=== PATIENT | female | born 1970 | race Caucasian/White ===

== ENCOUNTER → 2022-03-10 12:34 | Outpatient (CLI) | payer BC, SELFPAY ==
[2022-03-10 14:19] LABS: NT Pro Brain Natriuretic Pep. 28.7 pg/mL (0-125)
== END ==
PROVIDERS: PCP Physician Assistant; Visit Provider Internal Medicine Cardiovascular Disease
DX: R00.2 Palpitations (principal); E78.5 Hyperlipidemia, unspecified; R94.31 Abnormal electrocardiogram [ECG] [EKG]; F17.200 Nicotine dependence, unspecified, uncomplicated; R06.83 Snoring; R40.0 Somnolence; R60.0 Localized edema
CPT/HCPCS: 36415; 83880; 93270

== ENCOUNTER → 2022-03-20 07:12 | Outpatient (CLI) | payer BC, SELFPAY ==
--- NOTE | 2022-03-20 07:13 | CA_ITS ---
APPROVED REPORT EXAM: Comprehensive 2D, Doppler, and color-flow Echocardiogram Manager Social Work: Kristi Gil, RCS, RVS Ht: 5 ft 9 in Wt: 221lbs BSA: 2.16 BP: 134/70 mmHg Indications: Smoker, Family Hx-HD, Palpitations, CP, HLD, Edema 2D Dimensions IVSd 0.88 cm F: 0.6-1.0 LVEF (Visual) 48.70 % PWd 0.86 cm F: 0.6 - 1.0 LA Volume 75.80 mL LVDd 5.62 cm F: 3.9 - 5.3 LA Volume Index 35.25 mL/m2 (M/F) 16-34 LVDs 4.22 cm F: 2.2 - 3.5 Aortic Root 2.87 cm F: 2.7 - 3.3 Left Atrium 3.87 cm F: 2.7 - 3.8 LVOT 2.06 cm (M/F) 1.5-2.5 M-Mode Dimensions RVDd 2.32 cm (0.9-2.6) LA Diam 3.67 cm (1.9-4.0) LVDd 5.52 cm (3.5-5.7) Ao Diam 3.03 cm (2.0-3.7) LVDs 4.12 cm (3.5-5.7) IVSd 1.03 cm (0.6-1.1) PWd 0.84 cm (0.6-1.1) EF (Teich) 50.30% EPSs 1.21 cm FS 25.90% EDV (Teich) 151.20 mL TAPSE 2.02 (<1.7) ESV (Teich) 75.10 mL LV Diastology E Decel Time 183.00 (160-240 msec) E/A Ratio 1.36 MED E' 9.50 (< 7 cm/sec) MED A' 10.80 cm/s E'/MED E' Ratio 10.04 (>14) LAT E' 8.10 (<10 cm/sec) LAT A' 6.20 cm/s E/LAT E' Ratio 11.78 (>14) Aortic Valve LVOT Max 93.00 (70-110 cm/s) LVOT VTI 20.12 cm AoV Peak Shimon. 122.00 (50-130 cm/s) AO Peak GR. 6.00 mmHg AO Mean GR. 3.00 (<5 mmHg) AO VTI 25.95 (18-25 cm) JOHN (VTI) 2.58 (2.5-4.5 cm2) Mitral Valve MV A Velocity 70.00 (40-130 cm/s) E/A Ratio 1.36 MV Decel. Time 183.00 (160-240 ms) MV PHT 53.00 ms Pulmonary Valve PV Peak Velocity 54.00 (50-150 cm/s) Tricuspid Valve TR P. Velocity 219.00 cm/s RAP Estimate 10.00 mmHg RVSP 29.10 mmHg Left Ventricle Left atrium is normal size, left ventricle is normal size there is no concentric left ventricular hypertrophy, estimated ejection fraction 55% with no regional wall motion abnormality, diastolic parameters are within normal range. Right Ventricle Right atrium and right ventricle are normal size and contractility. Aortic Valve Aortic valve is minimally thickened and fibrosed there is no aortic stenosis or aortic insufficiency. Mitral Valve Mitral valve grossly normal, there is trace mitral regurgitation. Tricuspid Valve Tricuspid valve grossly normal, there is trace tricuspid regurgitation, tricuspid regurgitation jet velocity is inadequate for calculation of the right ventricular systolic pressure. Pulmonic Valve Pulmonic valve is poorly visualized. Great Vessels Aortic root is normal size. Inferior vena cava is normal 7 normal inspiratory collapse. Pericardium No significant pericardial effusion noted. Conclusion 1. Normal left ventricular size preserved left ventricular systolic function, estimated ejection fraction 55% with no regional wall motion abnormality, diastolic parameters are within normal range. 2. Trace mitral and tricuspid regurgitation. 3. No significant pericardial effusion. 4. Inferior vena cava is normal size with normal inspiratory collapse. Electronically signed by : Merritt Maynard MD 03/20/2022 14:32:52
== END ==
PROVIDERS: PCP Physician Assistant; Visit Provider Internal Medicine Cardiovascular Disease
DX: R00.2 Palpitations (principal); E78.5 Hyperlipidemia, unspecified; R06.83 Snoring; R40.0 Somnolence; R94.31 Abnormal electrocardiogram [ECG] [EKG]; F17.200 Nicotine dependence, unspecified, uncomplicated
CPT/HCPCS: 93306

== ENCOUNTER → 2022-03-20 07:19 | Outpatient (CLI) | payer SELFPAY ==
--- NOTE | 2022-03-20 07:19 | CT_ITS ---
FINAL REPORT CLINICAL HISTORY: . family hx heart disease FINDINGS: CT CORONARY CALCIUM SCORE W/O TECHNIQUE: Thin-section axial images were obtained through the heart and coronary arteries per CT coronary calcium score protocol. This study was performed with techniques to keep radiation doses as low as reasonably achievable (ALARA). Individualized dose reduction techniques using automated exposure control or adjustment of mA and/or kV according to the patient's size were employed. FINDINGS: On the axial images, no calcification is seen. This gives a coronary artery calcium score of 0 based on the Agatston scale. This coronary artery calcium score places the patient within the 0 percentile based on age and gender. The heart size is normal. There is no pleural or pericardial effusion. Limited evaluation of the lungs reveal no suspicious nodule. IMPRESSION: Coronary artery calcium score of 0 based on the Agatston scale. Reviewed, Interpreted and Dictated by Clark Quiros III, MD Transcribed by Jenny Waite Authenticated and [facility]
== END ==
PROVIDERS: PCP Physician Assistant; Visit Provider Internal Medicine Cardiovascular Disease
DX: R00.2 Palpitations (principal); R94.31 Abnormal electrocardiogram [ECG] [EKG]; F17.200 Nicotine dependence, unspecified, uncomplicated
CPT/HCPCS: 75571

== ENCOUNTER → 2022-04-21 10:07 | Outpatient (CLI) | payer BC, SELFPAY | PROVIDERS: PCP Physician Assistant; Visit Provider Internal Medicine Cardiovascular Disease | DX: G47.30 Sleep apnea, unspecified (principal); R06.83 Snoring; R40.0 Somnolence | CPT/HCPCS: G0399 ==

== ENCOUNTER 2024-03-11 09:47 | Outpatient (CLI) | payer BC, SELFPAY ==
--- NOTE | 2024-03-11 09:47 | CA_ITS ---
APPROVED REPORT EXAM: Comprehensive 2D, Doppler, and color-flow Echocardiogram [employer]: Opla Lezama RT(R) Ht: 5 ft 9 in Wt: 227lbs BSA: 2.18 BP: 137/71 mmHg Indications: edema, smoker, palpitations 2D Dimensions LVEF (Amaya's) 62.00 % F: 54 - 74 LV Volume 90.00 mL F: 46 - 106 LV Volume Index 41.3 mL/m2 F: 29 - 61 LA Volume 28.70 mL LA Volume Index 13.17 mL/m2 (M/F) 16-34 EF AP4 62.80 % EF AP2 62.9 % EF BP 62.0 % GL Strain -19.0 % M-Mode Dimensions RVDd 2.16 cm (0.9-2.6) LA Diam 3.58 cm (1.9-4.0) LVDd 5.08 cm (3.5-5.7) LVDs 3.73 cm (3.5-5.7) IVSd 0.62 cm (0.6-1.1) PWd 0.99 cm (0.6-1.1) EF (Teich) 51.70% FS 26.60% EDV (Teich) 122.70 mL ESV (Teich) 59.30 mL LV Diastology E Decel Time 150 (160-240 msec) E/A Ratio 1.2 Mitral Valve MV E Max Shimon. 95.0 (40-130 cm/s) MV A Velocity 82.0 (40-130 cm/s) E/A Ratio 1.17 MV PHT 44.0 ms Left Ventricle The left ventricle is normal size. The left ventricular systolic function is normal. The left ventricular ejection fraction is within the normal range. There is normal left ventricular wall thickness. There is normal LV segmental wall motion. The left ventricular diastolic function is normal. LVEF is 55%. Right Ventricle The right ventricle is normal size. The right ventricular systolic function is normal. Atria The left atrium size is normal. The right atrium size is normal. There is no Doppler evidence of interatrial shunt. Aortic Valve The aortic valve is mildly thickened. There is no aortic valvular stenosis. Trace aortic regurgitation is present. Mitral Valve The mitral valve is normal in structure. No evidence of mitral valve stenosis. Mild mitral regurgitation. Tricuspid Valve The tricuspid valve leaflets are thin and pliable. Trace tricuspid regurgitation. There is insufficient TR jet to estimate RVSP. Pulmonic Valve The pulmonary valve is normal in structure. Trace pulmonic regurgitation. Great Vessels The aortic root is normal in size. The ascending aorta is normal in size. IVC is normal in size and collapses >50% with inspiration. Pericardium There is no pericardial effusion. Other Information Study Quality: Fair Conclusion Normal biventricular systolic function. Mild MR. Electronically signed by : Roxane Herrera MD 03/13/2024 10:57:21
== END 2024-03-11 23:59 | disposition home or self-care (01) ==
LOC: RT 09:47
PROVIDERS: PCP Nurse Practitioner Family; Visit Provider Physician Assistant
DX: R60.9 Edema, unspecified (principal); E78.5 Hyperlipidemia, unspecified; F17.200 Nicotine dependence, unspecified, uncomplicated
CPT/HCPCS: 93306

== ENCOUNTER 2024-03-13 10:06 | Outpatient (CLI) | payer BC, SELFPAY ==
--- NOTE | 2024-03-13 10:13 | XR_ITS ---
FINAL REPORT CLINICAL HISTORY: neck pain (cervical pain) x2 months, pain does not radiate FINDINGS: CERVICAL SPINE SERIES Three views demonstrate no acute fracture. There is moderate multilevel degenerative disc disease and spondylosis. The vertebral body demonstrates normal height.. There is no malalignment. IMPRESSION: No acute process. Reviewed, Interpreted and Dictated by Matt Saenz MD Transcribed by Herlinda Hernandez Authenticated and [facility]
[2024-03-13 11:36] LABS: Triiodothryronine (T3) Uptake 32 % (23.5-40.5)
[2024-03-13 11:38] LABS: Free T4 (Free Thyroxine) 1.32 ng/dl (0.78-2.19)
[2024-03-13 11:40] LABS: Free Thyroxine Index 3.7 ug/dL (5.93-13.13); T4 (Thyroxine) 11.5 ug/dl (5.53-11.0)
[2024-03-13 11:54] LABS: Thyroid Stimulating Hormone 3.72 uIU/mL (0.465-4.68)
[2024-03-14 08:22] LABS: Thyroid Peroxidase Antibodies 142 IU/mL (0-34)
[2024-03-15 07:38] LABS: Thyroid Stimulating Immunoglob 0.25 IU/L (0.00-0.55)
== END 2024-03-13 23:59 | disposition home or self-care (01) ==
LOC: LAB 10:07
PROVIDERS: PCP Nurse Practitioner Family; Visit Provider Nurse Practitioner
DX: M54.2 Cervicalgia (principal); E03.9 Hypothyroidism, unspecified
CPT/HCPCS: 36415; 72040; 84436; 84439; 84443; 84445; 84479; 86376

== ENCOUNTER 2024-03-18 10:11 | Outpatient (CLI) | payer BC, SELFPAY ==
--- NOTE | 2024-03-18 10:11 | US_ITS ---
FINAL REPORT TECHNIQUE: Limited sonographic images of the thyroid were obtained. CLINICAL HISTORY: neck pain and hypothyroidism FINDINGS: There is a diffusely atrophic thyroid which is mildly heterogeneous. The appearance is most suggestive of chronic thyroiditis. No lesions identified. IMPRESSION: No suspicious lesion. Atrophic gland, probably related to chronic thyroiditis. Reviewed, Interpreted and Dictated by Matt Saenz MD Transcribed by Marisel Niño Authenticated and [facility]
== END 2024-03-18 23:59 | disposition home or self-care (01) ==
LOC: RAD 10:11
PROVIDERS: PCP Nurse Practitioner Family; Visit Provider Nurse Practitioner
DX: E03.9 Hypothyroidism, unspecified (principal)
CPT/HCPCS: 76536